=== PATIENT | female | born 1980 | race Two or more races ===

== ENCOUNTER 2017-04-17 12:14 | Emergency (ER) | payer OTHER ==
[2017-04-17 12:29] VITALS: BMI 32.8
--- NOTE | 2017-04-17 13:30 | PDOC ---
History of Present Illness - General Chief Complaint: Headache Stated Complaint: HEADACHES (11 WKS ) Time Seen by Provider: 04/17/17 13:29 - History of Present Illness Initial Comments: 04/17/17 14:34 Ms. Millard is a 37 yo who presents c/o a 1 day history of headache to the left and right frontal areas of her head. She says that she has not taken anything for this but wants to confirm that she isn't having a stroke. She also reports symptoms increase when she stands up to quickly. Ms. Millard has had full care and has a confirmed IUP. She takes only a vitamin daily and otherwise feels she is in her normal health. The patient denies chest pain, shortness of breath, and dizziness. Denies fever , chills, nausea, vomit, diarrhea and constipation. Denies dysuria, frequency, urgency and hematuria. Allergies: NKDA Past History - Past Medical History Allergies/Adverse Reactions: Allergies Allergy/AdvReac Type Severity Reaction Status Date / Time No Known Allergies Allergy Verified 04/17/17 12:29 COPD: No - Suicide/Smoking/Psychosocial Hx Smoking History: Never smoked Information on smoking cessation initiated: No Hx Alcohol Use: No Drug/Substance Use Hx: No Substance Use Type: None Review of Systems - Review of Systems Comments:: 04/17/17 13:30 GENERAL/CONSTITUTIONAL: No fever or chills. No weakness. HEAD, EYES, EARS, NOSE AND THROAT: No change in vision. No ear pain or discharge. No sore throat. CARDIOVASCULAR: No chest pain or shortness of breath RESPIRATORY: No cough, wheezing, or hemoptysis. GASTROINTESTINAL: No nausea, vomiting, diarrhea or constipation. GENITOURINARY: No dysuria, frequency, or change in urination. MUSCULOSKELETAL: No joint or muscle swelling or pain. No neck or back pain. SKIN: No rash NEUROLOGIC: +Headache as described, no vertigo, loss of consciousness, or change in strength/sensation. ENDOCRINE: No increased thirst. No abnormal weight change HEMATOLOGIC/LYMPHATIC: No anemia, easy bleeding, or history of blood clots. ALLERGIC/IMMUNOLOGIC: No hives or skin allergy. *Physical Exam - Vital Signs Last Vital Signs Temp Pulse Resp BP Pulse Ox 98 F 72 17 105/66 99 04/17/17 12:27 04/17/17 12:27 04/17/17 12:27 04/17/17 12:27 04/17/17 12:27 - Physical Exam Comments: 04/17/17 13:30 GENERAL: Awake, alert, and fully oriented, in no acute distress HEAD: No signs of trauma, normocephalic, atraumatic EYES: PERRLA, EOMI, sclera anicteric, conjunctiva clear ENT: Auricles normal inspection, hearing grossly normal, nares patent, oropharynx clear without exudates. Moist mucosa NECK: Normal ROM, supple, no lymphadenopathy, JVD, or masses LUNGS: No distress, speaks full sentences, clear to auscultation bilaterally HEART: Regular rate and rhythm, normal S1 and S2, no murmurs, rubs or gallops, peripheral pulses normal and equal bilaterally. ABDOMEN: Soft, nontender, normoactive bowel sounds. No guarding, no rebound. No masses EXTREMITIES: Normal inspection, Normal range of motion, no edema. No clubbing or cyanosis. NEUROLOGICAL: Cranial nerves II through XII grossly intact. Normal speech, normal gait, no focal sensorimotor deficits SKIN: Warm, Dry, normal turgor, no rashes or lesions noted. ED Treatment Course - LABORATORY CBC & Chemistry Diagram: 04/17/17 15:00 04/17/17 15:00 Medical Decision Making - Medical Decision Making 04/17/17 14:42 Mr. Millard is a 37 yo male w/ pmh as described who presents w/ symptoms consistent w/ migraine headache. 04/17/17 16:21 Labs grossly wnl as below. Patient reports resolution of symptoms w/ 1 L NS and reglan. Believe symptom etiology to be a migraine. Discharging patient to home with instructions to f/u as needed w/ PCP for further evaluation as needed. Patient verbalized agreement and understanding and will comply. *DC/Admit/Observation/Transfer Diagnosis at time of Disposition: Migraine Qualifiers: Migraine type: unspecified Status migrainosus presence: without status migrainosus Intractability: not intractable Qualified Code(s): G43.909 - Migraine, unspecified, not intractable, without status migrainosus - Discharge Dispostion Disposition: HOME - Referrals - Patient Instructions Printed Discharge Instructions: DI for Migraine Additional Instructions: Please return if any increase /return of headache, fever, chills, or other concerning symptoms not relieved by over the counter medications. Follow-up with your primary care provider for further evaluation as needed. - Post Discharge Activity
--- NOTE | 2017-04-17 13:41 | PDOC ---
Attending Attestation - Resident Resident Name: Dash Oneill - ED Attending Attestation I have performed the following: I have examined & evaluated the patient, The case was reviewed & discussed with the resident, I agree w/resident's findings & plan, Exceptions are as noted - HPI HPI: 04/17/17 13:41 37y F at 11w gestation presents with complaint of headache. bitemporal, started gradually yesterday. no associated n/v, photophobia, vision changes, neck pain, fever/chills, abd pain, back pain, vag bleeding. The patient has not tried any [id number] medication as she was not short associated . On exam the patient appears well, in no acute distress The patient's neurologic exam is unremarkable: EOMI, sensation intact symmetrically in the face and extremities, normal senseation in the upper and lower extremities. cardio exam rrr, no m/r/g pulm: cta abd soft nontender - Medical Decision Making 04/17/17 15:50 labs reviewed pt feeling improved will dc with pmd fu return precautions were discussed
[2017-04-17] MEDS ORDERED: METOCLOPRAMIDE HCL INJECTION 10 MG/2 ML VIAL IVPUSH ONE (14:22)
[2017-04-17] MEDS ORDERED: SODIUM CHLORIDE 1,000 ML IV STA (14:22)
[2017-04-17] MEDS ORDERED: METOCLOPRAMIDE HCL INJECTION 10 MG/2 ML VIAL ONE (14:44)
[2017-04-17 15:11] LABS: BASO % 0.2 % (0-2.0); HEMATOCRIT 36.1 % (32.4-45.2); HEMOGLOBIN 12.2 GM/dL (10.7-15.3); LYMPH % 28.4 % (8-40); MCH 29.9 pg (25.7-33.7); MCHC 33.7 g/dl (32.0-36.0); MEAN CELL VOLUME 88.6 fl (80-96); MEAN PLT VOLUME 8.3 fl (7.5-11.1); NEUT % 65.4 % (42.8-82.8); PLATELET COUNT 237 K/MM3 (134-434); RBC 4.07 M/mm3 (3.60-5.2); RDW 12.9 % (11.6-15.6); WHITE BLOOD COUNT 5.4 K/mm3 (4.0-10.0)
[2017-04-17 15:15] LABS: URINE APPEARANCE CLEAR; URINE BILIRUBIN NEGATIVE (NEGATIVE); URINE BLOOD NEGATIVE (NEGATIVE); URINE COLOR YELLOW; URINE GLUCOSE (UA) 1+ (NEGATIVE); URINE KETONE 1+ (NEGATIVE); URINE LEUK ESTERASE NEGATIVE (NEGATIVE); URINE NITRITE NEGATIVE (NEGATIVE); URINE PROTEIN NEGATIVE (NEGATIVE)
[2017-04-17 15:43] LABS: ALBUMIN 3.7 g/dl (3.4-5.0); ANION GAP 10 (8-16); BILIRUBIN,TOTAL 0.6 mg/dL (0.2-1.0); BLOOD UREA NITROGEN 14 mg/dL (7-18); CALCIUM 8.6 mg/dL (8.5-10.1); CHLORIDE 104 mmol/L (98-107); CO2 23 mmol/L (21-32); CREATININE 0.4 mg/dL (0.55-1.02); GLUCOSE,RANDOM 103 mg/dL (74-106); POTASSIUM 3.8 mmol/L (3.5-5.1); SGOT/AST 14 U/L (15-37); SGPT/ALT 25 U/L (12-78); SODIUM 137 mmol/L (136-145)
[2017-04-17 15:44] LABS: ALK PHOS 51 U/L (45-117)
[2017-04-17 17:13] VITALS: BP 112/78; PULSE 81; TEMP 97.9
== END 2017-04-17 17:13 | disposition home or self-care (01) ==
LOC: JER 12:14
PROC: 3E0337Z Introduction of Electrolytic and Water Balance Substance into Peripheral Vein, Percutaneous Approach (ICD-10-PCS; principal; 2017-04-17)
PROC: 3E033GC Introduction of Other Therapeutic Substance into Peripheral Vein, Percutaneous Approach (ICD-10-PCS; 2017-04-17)
DX: O99.89 Other specified diseases and conditions complicating pregnancy, childbirth and the puerperium (principal); G43.909 Migraine, unspecified, not intractable, without status migrainosus; Z3A.11 11 weeks gestation of pregnancy
CPT/HCPCS: 36415; 80053; 81003; 85025; 96361; 96374; 99283-25

== ENCOUNTER 2017-04-23 15:48 | Emergency (ER) | payer OTHER ==
[2017-04-23 15:56] VITALS: BP 126/64; PULSE 82; TEMP 97.8; BMI 33.4
--- NOTE | 2017-04-23 15:57 | PDOC ---
Rapid Medical Evaluation Time Seen by Provider: 04/23/17 15:51 Medical Evaluation: Allergies Allergy/AdvReac Type Severity Reaction Status Date / Time No Known Allergies Allergy Verified 04/23/17 15:52 04/23/17 15:52 The patient presents with a chief complaint of: Elevated lead levels; sent by the [employer] currently 12 weeks . Seen on Thursday here for a migraine. Still with slight headache. No nausea, lightheadedness weakness, vaginal bleeding, abdominal pain I have performed a brief in-person evaluation of this patient; Pertinent physical exam findings: ambulatory, in no respiratory distress. CTAB, no gross neuro abnormalities I have ordered the following: CBC, CMP, Lead level The patient will proceed to the ED for further evaluation.
[2017-04-23 16:25] LABS: BASO % 0.2 % (0-2.0); EOS % 0.6 % (0-4.5); HEMATOCRIT 36.1 % (32.4-45.2); HEMOGLOBIN 12.2 GM/dL (10.7-15.3); LYMPH % 26.6 % (8-40); MCH 30.2 pg (25.7-33.7); MCHC 33.9 g/dl (32.0-36.0); MEAN CELL VOLUME 89.1 fl (80-96); MONO % 3.7 % (3.8-10.2); NEUT % 68.9 % (42.8-82.8); PLATELET COUNT 247 K/MM3 (134-434); RBC 4.05 M/mm3 (3.60-5.2); RDW 12.9 % (11.6-15.6); WHITE BLOOD COUNT 5.6 K/mm3 (4.0-10.0)
[2017-04-23 16:49] LABS: ALBUMIN 3.8 g/dl (3.4-5.0); ANION GAP 7 (8-16); BILIRUBIN,TOTAL 0.4 mg/dL (0.2-1.0); BLOOD UREA NITROGEN 15 mg/dL (7-18); CALCIUM 8.8 mg/dL (8.5-10.1); CHLORIDE 103 mmol/L (98-107); CO2 26 mmol/L (21-32); CREATININE 0.6 mg/dL (0.55-1.02); GLUCOSE,RANDOM 107 mg/dL (74-106); POTASSIUM 3.9 mmol/L (3.5-5.1); SGOT/AST 17 U/L (15-37); SGPT/ALT 29 U/L (12-78); SODIUM 136 mmol/L (136-145)
[2017-04-23 16:50] LABS: ALK PHOS 51 U/L (45-117)
--- NOTE | 2017-04-23 17:26 | PDOC ---
History of Present Illness - General Chief Complaint: Revisit, Lab Variance Stated Complaint: LAB VARIANCE (12 WKS ) Time Seen by Provider: 04/23/17 15:51 History Source: Patient Exam Limitations: No Limitations - History of Present Illness Initial Comments: 04/23/17 17:21 CHIEF COMPLAINT: Requesting lead testing. HISTORY OF PRESENT ILLNESS: Patient is a 37-year-old female currently 12 weeks LMP was . 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 Patient denies any chest pain, no shortness of breath, no abdominal pain , no nausea vomiting or diarrhea. Past History - Past Medical History Allergies/Adverse Reactions: Allergies Allergy/AdvReac Type Severity Reaction Status Date / Time No Known Allergies Allergy Verified 04/23/17 15:52 COPD: No Diabetes: Yes - Immunization History Immunization Up to Date: Yes - Suicide/Smoking/Psychosocial Hx Smoking History: Never smoked Hx Alcohol Use: No Drug/Substance Use Hx: No Substance Use Type: None Review of Systems - Review of Systems Constitutional: No: Symptoms Reported All Other Systems: Reviewed and Negative *Physical Exam - Vital Signs Last Vital Signs Temp Pulse Resp BP Pulse Ox 97.8 F 82 19 126/64 99 04/23/17 15:52 04/23/17 15:52 04/23/17 15:52 04/23/17 15:52 04/23/17 15:52 - Physical Exam General Appearance: Yes: Appropriately Dressed. No: Apparent Distress HEENT: positive: EOMI, CHANTELLE, Normal ENT Inspection, Normal Voice, Symmetrical, TMs Normal, Pharynx Normal. negative: Pharyngeal Erythema, Tonsillar Exudate, Tonsillar Erythema, TM Bulging, TM Dull, TM Erythema Neck: negative: Tender, Lymphadenopathy (R), Lymphadenopathy (L), Tender lateral , Tender midline Respiratory/Chest: positive: Lungs Clear, Normal Breath Sounds. negative: Chest Tender, Respiratory Distress, Accessory Muscle Use, Rales, Rhonchi, Wheezing Cardiovascular: positive: Regular Rhythm, Regular Rate Lymphatic: negative: Adenopathy Integumentary: positive: Normal Color, Dry. negative: Rash Neurologic: positive: Fully Oriented, Alert, Normal Mood/Affect ED Treatment Course - LABORATORY CBC & Chemistry Diagram: 04/23/17 16:05 04/23/17 16:05 - ADDITIONAL ORDERS Additional order review: Laboratory Results 04/23/17 16:05 Sodium 136 Potassium 3.9 Chloride 103 Carbon Dioxide 26 Anion Gap 7 L BUN 15 Creatinine 0.6 Creat Clearance w eGFR > 60 Random Glucose 107 H Calcium 8.8 Total Bilirubin 0.4 D AST 17 ALT 29 Alkaline Phosphatase 51 Total Protein 7.0 Albumin 3.8 04/23/17 16:05 RBC 4.05 MCV 89.1 MCHC 33.9 RDW 12.9 MPV 8.0 Neutrophils % 68.9 Lymphocytes % 26.6 Monocytes % 3.7 L Eosinophils % 0.6 Basophils % 0.2 Medical Decision Making - Medical Decision Making 04/23/17 17:24 A/P: Patient here requesting lead testing. Patient denies any symptoms no chest pain or shortness of breath. I have discussed case with the patient's OB Ashlie De La Cruz who told patient to follow-up with her PMD however patient came to emergency department she had no PMD. Upon questioning patient states that she did go to Dr. Chasity Aden in the past and will follow-up with her. I will redraw CBC, CMP and lead levels patient will follow up as outpatient at the clinic. 04/23/17 17:27 *DC/Admit/Observation/Transfer Diagnosis at time of Disposition: Lead exposure - Discharge Dispostion Disposition: HOME Condition at time of disposition: Stable Admit: No - Referrals Referrals: Chasity Peters MD [Staff Physician] - - Patient Instructions Additional Instructions: Please follow-up in the office of Dr. Chasity Aden, left her know that you're lead level ,CMP and CBC were drawn today, she will need to follow-up for results. If any shortness of breath, or any other concerns return to ER - Post Discharge Activity
== END 2017-04-23 17:30 | disposition home or self-care (01) ==
LOC: JERFT 15:48
DX: O99.89 Other specified diseases and conditions complicating pregnancy, childbirth and the puerperium (principal); Z77.011 Contact with and (suspected) exposure to lead; Z3A.12 12 weeks gestation of pregnancy
CPT/HCPCS: 36415; 80053; 83655; 85025; 99281-25

== ENCOUNTER 2020-02-18 14:01 | Emergency (ER) | payer OTHER ==
[2020-02-18 14:43] VITALS: BMI 32.5
[2020-02-18] MEDS ORDERED: SODIUM CHLORIDE 0.9% 500 ML INFUS.BAG IV ONE (15:06)
[2020-02-18] MEDS ORDERED: ACETAMINOPHEN 1000 MG/100 ML VIAL (NON FORMULARY) IVPB ONE (15:06)
[2020-02-18] MEDS ORDERED: ACETAMINOPHEN INJECTION 100 ML IVPB ONE (15:16)
[2020-02-18 15:41] LABS: BASO % 0.5 % (0-2.0); EOS % 2.6 % (0-4.5); HEMATOCRIT 39.5 % (32.4-45.2); HEMOGLOBIN 13.2 GM/dL (10.7-15.3); LYMPH % 38.1 % (8-40); MCHC 33.3 g/dl (32.0-36.0); MEAN PLT VOLUME 8.5 fl (7.5-11.1); MONO % 5.4 % (3.8-10.2); NEUT % 53.4 % (42.8-82.8); PLATELET COUNT 263 K/MM3 (134-434); RBC 4.39 M/mm3 (3.60-5.2); RDW 13.1 % (11.6-15.6); WHITE BLOOD COUNT 5.8 K/mm3 (4.0-10.0)
[2020-02-18 15:45] LABS: EPI CELLS 10 /uL (0-25.1); HYALINE CASTS 4 /uL (0-3.1); URINE APPEARANCE CLEAR; URINE BACTERIA 149 /uL (0-1359); URINE BILIRUBIN NEGATIVE (NEGATIVE); URINE COLOR YELLOW; URINE GLUCOSE (UA) NEGATIVE (NEGATIVE); URINE KETONE NEGATIVE (NEGATIVE); URINE LEUK ESTERASE 1+ (NEGATIVE); URINE NITRITE NEGATIVE (NEGATIVE); URINE PROTEIN NEGATIVE (NEGATIVE); URINE RBC 5 /uL (0-23.9); URINE WBC 114 /uL (0-25.8)
[2020-02-18 16:29] LABS: CHLORIDE 104 mmol/L (98-107); SODIUM 137 mmol/L (136-145)
[2020-02-18 16:30] LABS: CALCIUM 8.8 mg/dL (8.5-10.1)
[2020-02-18 16:31] LABS: ALBUMIN 4.1 g/dl (3.4-5.0); ANION GAP 6 MMOL/L (8-16); BLOOD UREA NITROGEN 13.3 mg/dL (7-18); CO2 27 mmol/L (21-32); GLUCOSE,RANDOM 90 mg/dL (74-106)
[2020-02-18 16:34] LABS: CREATININE 0.7 mg/dL (0.55-1.3); SGOT/AST 23 U/L (15-37); SGPT/ALT 40 U/L (13-61)
[2020-02-18 16:35] LABS: BILIRUBIN,TOTAL 0.3 mg/dL (0.2-1); TOT PROT 7.7 g/dl (6.4-8.2)
[2020-02-18 16:37] LABS: ALK PHOS 74 U/L (45-117)
[2020-02-18 19:06] VITALS: BP 120/84; PULSE 72; TEMP 98
== END 2020-02-18 19:06 | disposition home or self-care (01) ==
LOC: JER 14:01
PROC: 3E0333Z Introduction of Anti-inflammatory into Peripheral Vein, Percutaneous Approach (ICD-10-PCS; principal; 2020-02-18)
DX: N30.00 Acute cystitis without hematuria (principal)
CPT/HCPCS: 36415; 76830-TC; 80053; 81003; 84702; 85025; 87086; 87186; 96374; 99285-25; J0131

== ENCOUNTER 2021-01-23 16:45 | Emergency (ER) | payer OTHER ==
[2021-01-23 16:56] VITALS: BP 113/78; PULSE 81; TEMP 97.9; BMI 32.8
[2021-01-23] MEDS ORDERED: LIDOCAINE HCL 1%, 10 MG/ML (50 mL VIAL) SQ ONE (17:35)
[2021-01-23] MEDS ORDERED: LIDOCAINE HCL 1%, 10 MG/ML (20ML VIAL) ONE (17:37)
[2021-01-23] MEDS ORDERED: KETOROLAC TROMETHAMINE 30 MG/1 ML VIAL IM ONE (20:47)
[2021-01-23] MEDS ORDERED: KETOROLAC TROMETHAMINE 30 MG/1 ML VIAL ONE (20:58)
== END 2021-01-23 21:05 ==
LOC: JER 16:45 → JERFT 16:45
PROC: 0Y963ZZ Drainage of Left Inguinal Region, Percutaneous Approach (ICD-10-PCS; principal; 2021-01-23)
PROC: 3E0233Z Introduction of Anti-inflammatory into Muscle, Percutaneous Approach (ICD-10-PCS; 2021-01-23)
DX: L02.214 Cutaneous abscess of groin (principal); M25.562 Pain in left knee
CPT/HCPCS: 73562-TC-LT-FY; 93971-TC; 99284-25

== ENCOUNTER 2022-01-25 10:53 | Emergency (ER) | payer OTHER ==
[2022-01-25 11:03] VITALS: BP 125/62; PULSE 88; RESP 16; TEMP 99.2; BMI 33.0
[2022-01-25] MEDS ORDERED: KETOROLAC TROMETHAMINE 15 MG/ML VIAL IM ONE (11:26)
[2022-01-25] MEDS ORDERED: METOCLOPRAMIDE HCL 10 MG TABLET (FP) PO ONE ×2 (11:26→11:35)
[2022-01-25] MEDS ORDERED: KETOROLAC TROMETHAMINE 15 MG/ML VIAL ONE (11:35)
== END 2022-01-25 12:37 | disposition home or self-care (01) ==
LOC: JER 10:53
PROC: 3E0233Z Introduction of Anti-inflammatory into Muscle, Percutaneous Approach (ICD-10-PCS; principal; 2022-01-25)
DX: J09.X2 Influenza due to identified novel influenza A virus with other respiratory manifestations (principal); H10.33 Unspecified acute conjunctivitis, bilateral
CPT/HCPCS: 0241U-QW; 96372; 99284-25

== ENCOUNTER 2023-03-23 08:10 | Emergency (ER) | payer OTHER ==
[2023-03-23 08:20] VITALS: BP 115/68; PULSE 88; RESP 18; TEMP 98.7; BMI 34.7
[2023-03-23] MEDS ORDERED: BENZOCAINE/MENTH/CETYLPYRD CL 1 EACH LOZENGE MM ONE (09:09)
[2023-03-23] MEDS ORDERED: ACETAMINOPHEN 500 MG TABLET (FP) PO ONE (09:09)
[2023-03-23] MEDS ORDERED: ACETAMINOPHEN 325 MG TABLET (FP) ONE (09:18)
[2023-03-23 09:32] LABS: PH,URINE 5.5 (5.0-8.0); URINE APPEARANCE CLEAR; URINE BILIRUBIN NEGATIVE (NEGATIVE); URINE COLOR DK YELLOW; URINE GLUCOSE (UA) NEGATIVE (NEGATIVE); URINE KETONE TRACE (NEGATIVE); URINE LEUK ESTERASE NEGATIVE (NEGATIVE); URINE NITRITE NEGATIVE (NEGATIVE); URINE PROTEIN TRACE (NEGATIVE)
== END 2023-03-23 10:06 | disposition home or self-care (01) ==
LOC: JER 08:10
DX: R05.9 Cough, unspecified (principal); J02.9 Acute pharyngitis, unspecified; M79.10 Myalgia, unspecified site; J06.9 Acute upper respiratory infection, unspecified; M54.9 Dorsalgia, unspecified; H92.03 Otalgia, bilateral; Z20.822 Contact with and (suspected) exposure to COVID-19
CPT/HCPCS: 0241U-QW; 81003; 87086; 87186; 93005; 93010; 99284-25

== ENCOUNTER 2023-08-20 12:59 | Emergency (ER) | payer OTHER ==
[2023-08-20 13:10] VITALS: BP 106/50; PULSE 62; RESP 18; TEMP 97.9; BMI 34.0
[2023-08-20] MEDS ORDERED: ACETAMINOPHEN 500 MG TABLET (FP) ONE (14:55)
[2023-08-20] MEDS: ACETAMINOPHEN 500 MG TABLET (FP) PO ONE (14:58)
== END 2023-08-20 15:35 | disposition home or self-care (01) ==
LOC: JERFT 12:59
DX: M25.562 Pain in left knee (principal)
CPT/HCPCS: 73562-TC-LT-FY; 73590-TC-LT-FY; 99283-25